=== PATIENT | female | born 1985 | race Caucasian/White ===

== ENCOUNTER 2022-05-10 05:22 | Inpatient (IN) | payer OTHER, SELFPAY ==
[2022-05-10] VITALS (17 sets, daily range): BP systolic 105–126; BP diastolic 59–80; PULSE 61–113; RESP 16; TEMP 36–37.4; O2SAT 96–100; BMI 32.8
[2022-05-10] MEDS: Lactated Ringers 1,000 ML 200 ML IV (05:30)
[2022-05-10 05:55] LABS: Absolute Lymphocyte Count 3.77 X10^3/uL (0.83-4.51); Absolute Neutrophil Count 7.6 X10^3/uL (2.0-7.7); Basophil# 0.08 X10^3/uL; Basophil% 0.6 % (0-1); Eosinophil# 0.32 X10^3/uL; Eosinophils% 2.5 % (0-5); Hematocrit 38.5 % (37-47); Hemoglobin 12.3 g/dL (12.0-15.0); Lymphocyte # 3.77 X10^3/ul (0.83-4.51); Lymphocyte % 29.8 % (19-41); Mean Corp Hgb Conc 31.9 g/dL (32-36); Mean Corpuscular Hgb 24.8 pg (27.0-32.0); Mean Corpuscular Volume 77.8 fL (81-99); Mean Platelet Vol. 10.9 fl (6.2-12.0); Monocyte# 0.79 X10^3/uL; Monocyte% 6.2 % (0-10); NRBC Flagged by Analyzer 0 % (0-5); Neutrophil # 7.56 X10^3/uL (2.7-7.7); Neutrophil % 59.9 % (47-70); Platelet Count 280 K/mm3 (150-450); RBC Distribution Width CV 15.9 % (11.6-14.6); RBC Distribution Width SD 44.2 fl (35.1-43.9); Red Blood Count 4.95 M/mm3 (4.2-5.4); White Blood Count 12.7 K/mm3 (4.4-11.0)
--- NOTE | 2022-05-10 06:35 | HP.PCM.OB_ITS ---
HPI - General General Date of Admission: 05/10/22 HPI Narrative NEGRITA BLANKENSHIP, is a 37 F at 40.3 weeks gestation who presents in spontaneous, active labor. complicated by inconsistant visits- not seen in office since 01/2022, GBS unknown, and AMA. Maternal Data Information SONAL Calculator Estimated Delivery Date Method Current WG Current Estimate 05/07/22 Manual 40w 3d PFSH PFSH Home Medications Prenatabs FA 1 tab PO DAILY 05/18/17 [History Last Taken 05/09/22 08:00] ibuprofen 600 mg tablet 600 mg PO Q6H PRN Pain ##60 05/19/17 [Rx Last Taken Unknown] Allergy/AdvReac Type Severity Reaction Status Date / Time No Known Allergies Allergy Verified 05/10/22 05:08 Surgical History History of surgery Social History Smoking Status: Never smoker History Elective abortions Hx Para 2 Spontaneous abortions Hx # Term Pregnancies Ectopic pregnancies Hx # Pregnancies Multiple births # of living children Visit Details OB Flowsheet Initial Weight: Not Recorded Date -?-?-?-?-?-?-?-?-?-?-?-?- EGA Weight BP Urine Prot -?-?-?-?-?-?-?-?-?-?-?-?- Glucose FHR FuHt Pres Dilation -?-?-?-?-?-?-?-?-?-?-?-?- Effaced St Visit Note 05/10/22 -?-?-?-?-?-?-?-?-?-?-?-?- 40w 3d 191 lb 2.252 oz 112/ 76 106/67 126/66 -?-?-?-?-?-?-?-?-?-?-?-?- -?-?-?-?-?-?-?-?-?-?-?-?- ROS Eyes Eyes: Denies blurry vision, change in vision or spots in vision ENT HEENT: Denies dizziness or headache(s) Cardiovascular Cardiovascular: Denies abdominal pain, chest pain or dyspnea Respiratory/Chest Respiratory/Chest: Denies cough, dyspnea, shortness of breath at rest or shortness of breath with exertion Gastrointestinal Gastrointestinal: Denies abdominal pain, diarrhea or vomiting Genitourinary Genitourinary: Denies change in urinary stream, difficulty urinating or dysuria Musculoskeletal Musculoskeletal: Reports none Integumentary Integumentary: Denies rash Neurologic Neurologic: Denies dizziness, headache(s), memory loss or weakness Psychiatric Psychiatric: Reports none Vital Signs Vital Signs Vital Signs: 05/10/22 05:13 05/10/22 05:13 05/10/22 05:13 Temperature Temperature Source Pulse Rate 96 Blood Pressure 112/76 BP Systolic 112 BP Diastolic 76 Pulse Ox 96 05/10/22 05:13 05/10/22 05:13 05/10/22 06:20 Temperature 98.6 F Temperature Source Temporal Pulse Rate Blood Pressure 106/67 BP Systolic 106 BP Diastolic 67 Pulse Ox 05/10/22 06:20 05/10/22 06:19 05/10/22 06:19 Temperature 96.8 F L Temperature Source Temporal Pulse Rate 83 Blood Pressure BP Systolic BP Diastolic Pulse Ox Weight Weight: 191 lb 2.252 oz Body Mass Index (BMI) 32.8 Physical Exam Const alert, oriented x3 and no apparent distress General Appearance: cooperative Orientation / Consciousness: awake Exam Limitations: no limitations HEENT normocephalic Head and Scalp: normal to inspection Eyes General Eye: normal appearance of both eyes Neck full ROM and no lymphadenopathy Lymph Lymphatic: no lymphadenopathy noted Chest inspection of chest normal Resp normal respiratory effort, normal air movement and clear to auscultation bilaterally Effort and Inspection: able to speak in complete sentences and symmetric chest movement Cardio regular rate and regular rhythm GI normal to inspection, nondistended, normoactive bowel sounds Manual OB Exam: presentation cephalic Amniotic Fluid: clear amniotic fluid Back/Spine normal ROM Extremity full ROM and no calf tenderness Skin no rashes or lesions noted General Skin Exam: no breakdown Neuro oriented x3 and CN's II-XII intact bilaterally Psych mental status grossly normal and thought process normal Labs Labs Labs: Blood Type O NEGATIVE Antibody Screen NEGATIVE Hct 38.5 % (37-47) Hgb 12.3 g/dL (12.0-15.0) Glucose 1 Hr 50 gm 97 mg/dL (70-140) Group B Strep DNA Negative (Negative-) Rhogam given: No Assessment & Plan (1) Rh negative status during : (2) AMA (advanced maternal age) multigravida 35+: (3) GBS screening not performed: (4) Spontaneous onset of labor: (5) Poor patient attendance of care: PLAN: Plan CE- Admit to labor and delivery Routine labs GBS unknown- Start PCN 5 million units IV x 1 then run PCN 3 million units IV every 4 hours until delivery Epidural if indicated Anticipate Dr. Shearer notified of admission
[2022-05-10] MEDS: Oxytocin 10 UNITS/ML Vial IM (07:10)
--- NOTE | 2022-05-10 07:47 | EX.PCM.OBRPT ---
Assessment & Plan (1) Precipitous delivery: (2) Spontaneous rupture of amniotic membranes: (3) GBS screening not performed: (4) AMA (advanced maternal age) multigravida 35+: (5) Rh negative status during : Maternal Data Information SONAL Calculator Estimated Delivery Date Method Current WG Current Estimate 05/07/22 Manual 40w 3d Vaginal Delivery Maternal Presentation Maternal Presentation: Active Labor Maternal Presentation: at 40 + weeks that presented in spontaneous, active labor. Spontaneous rupture of membranes for clear fluid. She quickly progressed to complete dilation and wanting to bear down. With minimal maternal effort, head delivered over supported perineum immediately followed by anterior shoulder and remainder of infant body. Vigorous female placed on maternal abdomen and attended to by nursing staff. Short cord noted. Pitocin IM given for active management of the third stage of labor. Cord clamped and cut after delay by FOB. Infant placed immediately skin to skin with patient. Placenta delivered spontaneously and intact. A second degree perineal laceration was repaired in usual fashion using Vicryl 3-0 Rapid after local anesthesia placed. Hemostasis obtained. Fundus firm 2 below U. EBL 300 cc. APGARS 8/9. Infant and patient bonding well at this time. Dr. Shearer notified of delivery. Operative Information Date of Procedure: 05/10/22 Pre-Operative Diagnosis: Term gestation, spontaneous labor Post-Operative Diagnosis: Precipitous delivery, live female infant Surgery / Procedure Performed: Spontaneous Vaginal Delivery Type of Anesthesia: Local with 1% Lidocaine Estimated Blood Loss: 300 Time of Delivery: 07:06 Findings Description of Procedure: Patient arrived to unit is spontaneous, active labor. S.R.O.M for clear fluid Presentation: Vertex Amniotic Membrane Rupture Type: Spontaneous Time of Membrane Rupture: 654 Amniotic Fluid Description: Clear Placental Delivery Description: Spontaneous Placenta Disposition: [facility] Cord Vessel Description: 3 Vessels Cord Entanglement: None A Gender: Female (1 minute): 8 (5 minute): 9 Delayed Cord Clamping: Yes Post Vaginal Delivery Medications Given After Delivery: - (IM Pitocin) Episiotomy Description: None Laceration: 2nd degree Complication Complications: None
[2022-05-11 00:10] VITALS: BP 112/72; PULSE 77; RESP 16; TEMP 36.5
[2022-05-11 04:51] VITALS: BP 108/67; PULSE 72; RESP 14; TEMP 37
--- NOTE | 2022-05-11 07:36 | DCINST_ITS ---
Discharge Instructions Diet Discharge Diet: No restrictions Activity Discharge Activity: Return to Normal Activity, May Shower and May Take a Tub Bath May resume sexual activity in: 4-6 weeks Weight Bearing Status: Weight bearing as tolerated Dressing / Incision Call your doctor if you observe: Inability to urinate, Using more than 1 pad per hour, Shortness of breath, Dizziness, Swelling in the ankles, Chest pain, Calf discomfort and Uncontrolled pain Follow Up Care When: Within 10 days Test Results: Test results from this visit will be discussed in further detail at your follow- up appointment, if applicable. Discharge Plan Admission Admit Date/Time: 05/10/22 05:22 Primary Reason for Your Visit: Labor and Delivery Attending Provider: Devorah Craven Primary Care Provider: Care Physician,[place] Primary Discharge Orders/Prescriptions Prescriptions: No Action Prenatabs FA 1 tab PO DAILY ibuprofen 600 MG tablet 600 mg PO Q6H PRN (Reason: Pain) Qty: 60 1RF Referrals / Follow Up: Care Physician,No Primary [Primary Care Provider] - Disposition Disposition (needs filled in before D/C Order can be placed): Home, Self Care
--- NOTE | 2022-05-11 07:36 | PCM.PN.OB ---
Subjective Subjective Patient seen at bedside. Feeling good. Ambulating and voiding without difficulty. Bottle feeding. Lochia is minimal. Desires discharge home today. Objective Data Objective Data Vital Signs: Vital Signs Temp Pulse Resp BP Pulse Ox O2 Del Method 98.6 F 72 14 108/67 97 Room Air 05/11/22 04:51 05/11/22 04:51 05/11/22 04:51 05/11/22 04:51 05/10/22 16:04 05/11/22 04:51 Oxygen Delivery Method Room Air Weight: 191 lb 2.252 oz Body Mass Index (BMI) 32.8 Intake & Output: Intake and Output for Last 24 Hours 05/09/22 05/10/22 05/11/22 23:59 23:59 23:59 Intake Total 245 / 245 800 / 800 Output Total 250 / 250 Balance -5 / -5 800 / 800 Lab / Micro Data Result Diagrams: 05/10/22 05:30 ROS Eyes Eyes: Denies blurry vision, change in vision or spots in vision ENT HEENT: Denies dizziness or headache(s) Cardiovascular Cardiovascular: Denies abdominal pain, chest pain or dyspnea Respiratory/Chest Respiratory/Chest: Denies cough, dyspnea, shortness of breath at rest or shortness of breath with exertion Gastrointestinal Gastrointestinal: Denies abdominal pain, diarrhea or vomiting Genitourinary Genitourinary: Denies change in urinary stream, difficulty urinating or dysuria Musculoskeletal Musculoskeletal: Reports none Integumentary Integumentary: Denies rash Neurologic Neurologic: Denies dizziness, headache(s), memory loss or weakness Physical Exam Const alert and no apparent distress General Appearance: cooperative and comfortable Exam Limitations: no limitations HEENT normocephalic Eyes General Eye: normal appearance of both eyes Neck full ROM General: normal visual inspection Chest Chest: symmetrical chest wall rise Resp normal respiratory effort and normal air movement Effort and Inspection: symmetric chest movement Auscultation: clear to auscultation bilaterally Cardio regular rate and regular rhythm GI normal to inspection, nondistended, normoactive bowel sounds Back/Spine normal ROM Extremity full ROM and no calf tenderness General Extremity: normal exam except as noted Skin no rashes or lesions noted Neuro CN's II-XII intact bilaterally Psych mental status grossly normal Assessment & Plan (1) Precipitous delivery: (2) Laceration, obstetrical, second degree:
[2022-05-11 08:37] VITALS: BP 117/75; PULSE 71; RESP 14; TEMP 36.8
[2022-05-11 14:14] VITALS: BP 114/76; PULSE 82; RESP 15; TEMP 36.8
== END 2022-05-11 18:25 | disposition home or self-care (01) | DRG 807 ==
LOC: WPOUT 05:25 → WP 05:25
PROVIDERS: Admitting Provider Advanced Practice Midwife; Visit Provider Advanced Practice Midwife
DX: O48.0 Post-term pregnancy (principal); O62.3 Precipitate labor; O70.1 Second degree perineal laceration during delivery; Z3A.40 40 weeks gestation of pregnancy; Z37.0 Single live birth
CPT/HCPCS: 59025; 59050; 85025; 86850; 86900; 86901; 99218; J7120; G0378